=== PATIENT | male | born 1955 | race Caucasian/White ===

== ENCOUNTER 2021-08-25 08:29 | Day surgery (SDC) | payer MEDICARE ==
[2021-08-21 13:54] LABS: BASOPHILS % (AUTO) 0.8 % (0.0-5.0); EOSINOPHILS % (AUTO) 3.1 % (0.0-8.0); LYMPHOCYTES % (AUTO) 23.2 % (21.0-51.0); MEAN CORPUSCULAR HEMOGLOBIN 31.6 pg (27.0-33.0); MEAN CORPUSCULAR HGB CONC 32.4 g/dL (32.0-36.0); MEAN CORPUSCULAR VOLUME 97.7 fL (79-99); MONOCYTES % (AUTO) 9.1 % (3.0-13.0); PLATELET COUNT (AUTO) 222 K/uL (130-400); RED BLOOD CELL COUNT(AUTO) 3.89 MIL/uL (4.50-6.20); WHITE BLOOD COUNT (AUTO) 7.2 K/uL (4.8-10.8)
[2021-08-21 14:04] LABS: CREATININE 1.2 mg/dL (0.5-1.5)
[~2021-08-25] VITALS: Ht 165.1 cm; Wt 84.0 kg
[2021-08-25] VITALS (15 sets, daily range): BP systolic 138–175; BP diastolic 76–91
[~2021-08-25 08:29] MED LIST: ASPI-1443 PO; METO-391 PO; NAPR-1196 PO; ROSU10TA28 PO; TAMS-1 PO
[2021-08-25] MEDS: CEFTRIAXONE 1G VIAL IVP SCH ×2 (08:51→10:45)
[2021-08-25] MEDS ORDERED: LACTATED RINGERS 1000ML 1,000 ML IV ONE (08:59)
[2021-08-25] MEDS ORDERED: IOHEXOL-350 50ML VIAL IV ONE (10:27)
[2021-08-25] MEDS ORDERED: SUCCINYLCHOLINE 200MG/10ML SYR ONE (10:54)
[2021-08-25] MEDS ORDERED: LIDOCAINE PF 100MG/5ML (2%) SYRINGE 5ML ONE (10:54)
[2021-08-25] MEDS ORDERED: NEOSTIGMINE 5MG/5ML SYR IV ONE (10:54)
[2021-08-25] MEDS ORDERED: GLYCOPYRROLATE 1 MG/5 ML SYRINGE ONE (10:54)
[2021-08-25] MEDS ORDERED: PROPOFOL 10 MG/ML 20ML VIAL IV ONE (10:54)
[2021-08-25] MEDS ORDERED: DEXAMETHASONE SOD PHOSPHATE 10MG/ML 1ML VIAL ONE (10:54)
[2021-08-25] MEDS ORDERED: FENTANYL CITRATE PF 50 MCG/1 ML 2ML VIAL ONE (10:55)
[2021-08-25] MEDS ORDERED: ROCURONIUM 10MG/1ML SYR 10 MG/ML ML ONE (11:02)
[2021-08-25] MEDS ORDERED: MEPERIDINE-PF 25 MG/ML SYG ONE (11:30)
[2021-08-25] MEDS ORDERED: SUGAMMADEX SODIUM 200 MG/2 ML VIAL IV ONE (11:39)
[2021-08-25] MEDS ORDERED: PHENAZOPYRIDINE HCL 200 MG TABLET ONE (13:06)
== END 2021-08-25 13:00 | disposition home or self-care (01) ==
LOC: DAH 08:29
PROVIDERS: ATTEND Urology
DX: N13.2 Hydronephrosis with renal and ureteral calculous obstruction (principal); C61 Malignant neoplasm of prostate; Z96.641 Presence of right artificial hip joint; I10 Essential (primary) hypertension; Z79.899 Other long term (current) drug therapy; Z20.822 Contact with and (suspected) exposure to COVID-19
CPT/HCPCS: 36415; 52332; 74420; 80048; 85025; 87635; 93005; A4215; A4221; A4222; A4223; A4344; A4358; A4600; A4663; A6260; C1758 ×2; C1769; C2617; C9803; J0330; J0696; J1100; J2001; J2175; J2704; J2710; J3010; J3490; J7030; J7120; Q9967